=== PATIENT | female | born 1975 | race African-American/Black ===

== ENCOUNTER 2018-10-25 01:12 | Emergency (ER) | payer OTHER, MEDICAID ==
--- NOTE | 2018-10-25 02:36 | EDPHY ---
H & P Stated Complaint: RLS for 3 days-takes percocet fro it as well as xanax Time Seen by Provider: 10/25/18 02:36 HPI/ROS: HPI CHIEF COMPLAINT: "I am out of my medications for restless leg syndrome" "I take Xanax and Percocet" HISTORY OF PRESENT ILLNESS: Patient 43-year-old female, she just relocated from [facility] to [facility], she presents emergency room stating that she suffers from restless legs syndrome and typically takes Xanax and Percocet for this. States she ran out of these medications 2-3 days ago. She presents emergency room around 2:00 a.m. In the morning stating her legs very breathless and she cannot get to sleep for the past 2 days. She is requesting refill of her Percocet and Xanax. She is followed by [facility]. I explained to her that I cannot refill her Xanax and Percocet this will need to follow up with her primary care doctor for this. I am willing to give her Tylenol and Motrin here which she tells me does not work, I also is willing to give her 1 mg Ativan. She reports to me she has never taking gabapentin or Requip before. "only percocet and xanxax work" Past Medical History: Restless leg syndrome Past Surgical History: Denies recent surgery Social History: Relocated from [facility] Family History: Noncontributory ROS REVIEW OF SYSTEMS: 10 Systems were reviewed and negative with the exception of the elements mentioned in the history of present illness. Exam Constitutional triage nursing summary reviewed, vital signs reviewed, awake/ alert. Eyes normal conjunctivae and sclera, EOMI, PERRLA. HENT normal inspection, atraumatic, moist mucus membranes, no epistaxis, neck supple/ no meningismus, no raccoon eyes. Respiratory clear to auscultation bilaterally, normal breath sounds, no respiratory distress, no wheezing. Cardiovascular rate normal, regular rhythm, no murmur, no edema, distal pulses normal. Gastrointestinal soft, non-tender, no rebound, no guarding, normal bowel sounds, no distension, no pulsatile mass. Genitourinary no CVA tenderness. Musculoskeletal bilateral lower extremities warm, no abnormal swelling, good distal pulse, good cap refill, moves them appropriately, ambulated well to the bathroom without difficulty no midline vertebral tenderness, full range of motion, no calf swelling, no tenderness of extremities, no meningismus, good pulses, neurovascularly intact. Skin pink, warm, & dry, no rash, skin atraumatic. Neurologic awake, alert and oriented x 3, AAOx3, moves all 4 extremities equally, motor intact, sensory intact, CN II-XII intact, normal cerebellar, normal vision, normal speech. Psychiatric normal mood/affect. Heme/Lymph/Immune no lymphadenopathy. Differential Diagnosis: Includes but is not limited to in a particular order acute anxiety, restless leg syndrome Medical Decision Making: Plan for this patient 1000 mg of Tylenol, 800 mg Motrin, 1 mg Ativan and re-evaluate. Re-evaluation: Notified by nursing staff at 3:13 a.m. The patient left the emergency room without any discharge instructions discharge paperwork or being told that she is ready for discharge. She did receive 1 mg Ativan the plan was to observe her here in the emergency room however she eloped from the ER. Source: Patient - Personal History LMP (Females 10-55): 1-7 Days Ago Current Tetanus Diphtheria and Acellular Pertussis (TDAP): Yes - Medical/Surgical History Hx Asthma: No Hx Chronic Respiratory Disease: No Hx Diabetes: No Hx Cardiac Disease: No Hx Renal Disease: No Hx Cirrhosis: No Hx Alcoholism: No Hx HIV/AIDS: No Hx Splenectomy or Spleen Trauma: No Other PMH: RLS - Social History Smoking Status: Never smoked Constitutional: Initial Vital Signs Temperature (C) 36.5 C 10/25/18 01:19 Heart Rate 90 10/25/18 01:19 Respiratory Rate 16 10/25/18 01:19 Blood Pressure 184/121 H 10/25/18 01:19 O2 Sat (%) 100 10/25/18 01:19 O2 Delivery Mode Room Air Allergies/Adverse Reactions: No Known Allergies Allergy (Unverified 10/25/18 01:18) Home Medications: Medication Instructions Recorded Percocet 5/325 (*) 10/25/18 Xanax 10/25/18 Medical Decision Making - Data Points Medications Given: Discontinued Medications Acetaminophen (Tylenol) 1,000 mg PO EDNOW ONE Stop: 10/25/18 02:43 Last Admin: 10/25/18 02:46 Dose: 1,000 mg Ibuprofen (Motrin) 800 mg PO EDNOW ONE Stop: 10/25/18 02:43 Last Admin: 10/25/18 02:46 Dose: 800 mg Lorazepam (Ativan) 1 mg PO ONCE ONE Stop: 10/25/18 02:43 Last Admin: 10/25/18 02:46 Dose: 1 mg Departure - Departure Disposition: Home, Routine, Self-Care Clinical Impression: Restless leg syndrome Condition: Good Instructions: Restless Legs Syndrome (ED) Additional Instructions: 1. Follow up with your primary care doctor Referrals: NONE *PRIMARY CARE P,. [Primary Care Provider] - As per Instructions [facility],. [Clinic] - As per Instructions
[2018-10-25] MEDS ORDERED: IBUPROFEN 800 MG TAB PO ONE (02:42)
[2018-10-25] MEDS ORDERED: ACETAMINOPHEN 500 MG TAB PO ONE (02:42)
[2018-10-25] MEDS ORDERED: LORazepam 1 MG TAB PO ONE (02:42)
[2018-10-25 02:49] VITALS: BP 154/101
== END 2018-10-25 03:15 | disposition home or self-care (01) ==
DX: G25.81 Restless legs syndrome (principal); Z79.899 Other long term (current) drug therapy

== ENCOUNTER 2018-10-27 23:11 | Emergency (ER) | payer OTHER, MEDICAID ==
[2018-10-28] MEDS ORDERED: KETOROLAC 30 MG/1 ML SDV IM ONE (00:12)
[2018-10-28] MEDS ORDERED: LIDOCAINE 4%/MENTHOL 1% PATCH TD ONE (00:12)
[2018-10-28] MEDS ORDERED: OXYCODONE/APAP 5/325 TAB PO ONE (00:12)
--- NOTE | 2018-10-28 00:18 | EDPHY ---
General Time Seen by Provider: 10/28/18 00:13 Narrative: CLINICAL IMPRESSION: Lumbar back pain with radiculopathy ASSESSMENT/PLAN: Patient is a 43-year-old female with a significant medical history of chronic lumbar back pain secondary to remote pelvic fracture and restless legs syndrome who presents with a complaint of low back pain with radiation down her left leg. Patient is afebrile, she is tearful and uncomfortable appearing however not toxic-appearing. HSNE intact with no significant red flags. Positive straight leg raise on the left side. In reviewing patient's records she was seen in urgent care on 10/24/2018 and prescribed #20 Ativan, seen again in the emergency department 10/25/2018 when she eloped prior to formal discharge instructions. History of physical examination today is most consistent with acute on chronic lumbar back pain with radiculopathy. She had no saddle paresthesias, lower extremity numbness, tingling, major motor weakness, urinary retention or bowel/ bladder incontinence. No indication for emergent MRI. There were no clinical findings to suggest vertebral osteomyelitis, acute fracture, cauda equina syndrome, epidural abscess/hematoma, epidural compression syndrome, herpes zoster, or additional emergent process. Patient was given single dose of Toradol , Percocet and lidoderm patch was placed while in the ED with mild improvement of her pain. She is well established with [facility] and will call to schedule a follow-up appointment on Monday. She understands that the emergency department will not refill her chronic medications. On repeat examination and prior to discharge the patient is well-appearing, she is able to ambulate independently and without difficulty, her neurological exam was grossly normal with no focal deficit. Strict return precautions discussed- she will return for increased or unmanageable pain, new injury, new midline back pain, numbness , tingling, weakness of legs, loss of bowel or bladder control, saddle paresthesia, urinary retention, loss of bowel or bladder control, difficulty walking or for any other new, worsening or worrisome symptoms. Patient verbalizes understanding and she is in agreement with plan. DIFFERENTIAL DX: Back pain including but not limited to muscular pain, herniated disc, spine fracture, intra-abdominal causes and urinary tract infection. ED COURSE: 0026: PDMP reviewed, patient given a prescription for 20 Ativan on 10/24. Regular prescriptions for Adderall have been given. Single prescription for 12 oxycodone last April. No evidence of narcotic use/overuse. 0100: On repeat examination prior to discharge the patient is well-appearing. She is much more comfortable, her mobility has improved. She is able to ambulate independently and without difficulty. Her neurological exam is grossly normal with no focal deficit. CHIEF COMPLAINT: Lumbar back pain, left buttock pain with radiation to her left leg HPI: Patient is a 43-year-old female with a significant medical history of chronic lumbar back pain secondary to remote pelvic fracture restless legs syndrome who presents with an acute exacerbation of pain with radiation down her left leg. Patient reports yesterday she had a sudden onset, atraumatic worsening of her underlying lumbar back pain. She reports the pain is most intense in her left buttock and radiates down the back of her leg to her foot. She denies any recent trauma or injury. She has experienced pain like this before. Patient endorses a remote pelvic fracture 3 years prior, has struggled with pain since then. Patient denies saddle paresthesias, lower extremity numbness, tingling, major motor weakness, urinary retention or bowel/bladder incontinence. She denies any recent fever, chest pain, shortness of breath or abdominal pain. She denies any pelvic pain, vaginal pain or vaginal bleeding. Patient does have issues with constipation, has been several days since she has had a bowel movement which is not uncommon for her. She denies any history of IV drug use, no recent spinal procedures. Patient was seen and evaluated in the emergency department 2 days prior for complaints of restless legs syndrome and requesting medication refills. Patient was given Ativan and noted to elope from the emergency department prior to discharge instructions. Patient lives at home with her 2 daughters who are 10 and 12, she is well established at [facility] per her report. PMH: Chronic back pain, restless leg syndrome Family History: Not contributory Social History: Denies illicit drug use or history of IV drug use, denies cigarette smoking REVIEW OF SYSTEMS: All other systems negative Constitutional: No fever, no chills, appetite change. Eyes: No discharge, vision change ENT: No sore throat, congestion, ear pain. Cardiovascular: No chest pain, no palpitations. Respiratory: No cough, no shortness of breath. Gastrointestinal: No abdominal pain, no vomiting, diarrhea. Genitourinary: No hematuria, dysuria, flank pain, pelvic pain. Musculoskeletal: Back pain, left buttock pain with radiation into the left leg. Skin: No rashes, color change. Neurological: No headache, dizziness, weakness. PHYSICAL EXAM: General Appearance: Patient is well-developed, she is tearful and uncomfortable appearing however not toxic-appearing. HENT: Normocephalic, atraumatic. Bilateral external ears are normal. Bilateral tympanic membranes are normal with pearly joaquin reflex. Nares are clear, mucosa is pink. Oropharynx is clear, uvula is midline. There is no tonsillar enlargement or exudate. The dentition is normal. Eyes: PERRLA, EOMI intact. Conjunctiva pink, no pallor or injection. Neck: Supple, nontender, no lymphadenopathy, no midline pain, FROM, no meningismus. Back: No step-off, palpable bony abnormality, edema, erythema or ecchymosis of the cervical, thoracic or lumbar spines. Patient with very mild tenderness to palpation in the midline lumbar spine, she is very tender in the left SI joint and buttock. Limited ROM of lumbar spine due to pain. 5/5 and equal strength of the UEs and LEs bilaterally including shoulder shrug. Pulses: 2+ and equal radial, DP and PT pulses bilaterally. Sensation intact and symmetric to light touch from face, UEs and LEs bilaterally. Straight leg raise positive on the left side. NON-traumatic Back Pain Pathway Low/medium concern for Acute Spinal Emergency (ASE) High Sensitivity Neuro Exam (HSNE) Lumbar pain L1: inner thigh sensation- no deficit L2: ADduct thigh (cross legs)- no deficit L3: Extend knee- no deficit L4: Ankle dorsiflexion- no deficit L5: Great toe extension- no deficit S1: Flex knee- no deficit S3-4: bladder/bowel function - no dysfunction HSNE no deficit --> check red flags Red flags: MINOR (1 pt each) Alcohol abuse- 0 DM- 0 Renal failure- 0 Night pain- 1 3rd visit in <= 20 days - no MAJOR (3 pts each) IVDA- 0 Fever without focus- 0 Recent/current systemic infection- 0 Immunosuppression (physician discretion)- 0 Recent spinal fracture/spinal procedure (ESR is not a good screen for spinal epidural hematoma)- 0 New bladder/bowel incontinence or retention - 0 Total Red Flag score - 1 Total Red Flag score <= 3 AND neuro exam is at baseline ---> no MRI is recommended Respiratory: There are no retractions, lungs are clear to auscultation. Cardiac: Regular rate and rhythm, no murmurs or gallops. Gastrointestinal: Abdomen is soft, nontender, bowel sounds normal, no masses/ hernia, no rigidity, guarding or focal peritoneal findings. Neurological: Alert and oriented x 3, CN 2-12 grossly intact, normal gait no ataxia, DTR's intact, normal sensation and strength Skin: Warm, dry, no rashes, no nodules on palpation. Musculoskeletal: Extremities are symmetrical, full range of motion, no tenderness, deformity, swelling, or erythema. Psychiatric: Patient is oriented X 3, there is no agitation. MEDICAL DECISION MAKING: Patient was seen independently. Secondary supervising physician at time of evaluation was Dr. Leblanc. Diagnosis: Lumbar back pain with radiculopathy. New, requires workup Summary: See Assessment and Plan for summary of ED visit Clinical lab tests: Not applicable. Independent visualization of images, tracing, or specimens: Not applicable. Decision to obtain medical records or history from someone other than the patient: No Review / Summarize previous medical records: Yes Discussed patient with another provider: Yes, Dr. Leblanc Patient Progress: Stable, dispo pending. - History Smoking Status: Never smoked - Objective Vital Signs: Initial Vital Signs Temperature (C) 37.0 C 10/27/18 23:13 Heart Rate 95 10/27/18 23:13 Respiratory Rate 16 10/27/18 23:13 Blood Pressure 154/103 H 10/27/18 23:13 O2 Sat (%) 100 10/27/18 23:13 O2 Delivery Mode Room Air Allergies/Adverse Reactions: No Known Allergies Allergy (Verified 10/27/18 23:15) Home Medications: Medication Instructions Recorded Percocet 5/325 (*) 10/25/18 Xanax 10/25/18 Medications Given: Discontinued Medications Ketorolac Tromethamine (Toradol) 30 mg IM EDNOW ONE Stop: 10/28/18 00:13 Last Admin: 10/28/18 00:20 Dose: 30 mg Miscellaneous Medication (Icy Hot Lidocaine/Menthol 4%/1% Patch) 1 patch TD EDNOW ONE Stop: 10/28/18 00:13 Last Admin: 10/28/18 00:18 Dose: 1 patch Oxycodone/Acetaminophen (Percocet 5/325) 2 tab PO EDNOW ONE Stop: 10/28/18 00:13 Last Admin: 10/28/18 00:17 Dose: 2 tab Departure - Departure Disposition: Home, Routine, Self-Care Clinical Impression: Lumbar back pain with radiculopathy affecting left lower extremity Condition: Good Instructions: Lumbar Radiculopathy (ED) Additional Instructions: DISCHARGE INSTRUCTIONS FROM YOUR DOCTOR Thank you for visiting our emergency department today. Please keep in mind that discharge from the emergency department does not mean that there is nothing wrong - it simply means that we have not identified an emergency condition that requires further evaluation or treatment in the hospital. You should always plan to follow up with primary care for re-evaluation of your condition in the next 2-3 days. Please call [facility] on Monday to schedule a follow-up appointment. It is imperative that you follow up with [facility] as we cannot refill your long-term medications. Most back pain improves quickly with rest and anti-inflammatory medicines. The majority of back pain will improve regardless of treatment within 4-6 weeks. Regardless, I recommend you follow up with primary care for recheck as soon as possible. Additional evaluation as an outpatient may be needed, and further therapeutic modalities such as chiropractic or PT may be helpful. Rest. Avoid lifting greater than 10-15 pounds. Avoid twisting or prolonged sitting. Movement and gentle walking is good for your back. Try to walk for 15-10 minutes on an even surface 3 or 4 times a day as tolerated and increase gentle exercise as your back improves. Apply ice to your low back during acute pain phase, later a heating pad set to a low setting or hot tub may be helpful to help relax muscles. Salonpas topical pain patch if you feel this his helped you. Follow the instructions on the packaging. Ibuprofen 400 mg every 6-8 hours with food. Stop for stomach upset. Do not exceed 2400 mg in 24 hours. Avoid these medications for the next 8 hours as you received Toradol today in the ED. Schedule a follow-up appointment with your primary care physician in the next 2- 3 days for re-evaluation. You may require further treatment, physical therapy and/or further future testing. Return for increased or unmanageable pain, new injury, new midline back pain, numbness, tingling, weakness of your legs, loss of bowel or bladder control, inability to urinate, burning or pain with urination, blood in the urine, fever , chills, abdominal pain, vomiting, difficulty walking, dizziness, fainting, chest pain, shortness of breath, neck pain, neck stiffness, other site of back pain, calf pain, leg redness or swelling, or for any other new, worsening or worrisome symptoms. People present with illnesses and injuries in different ways, and it is always possible that we have missed something. You may always return for re-evaluation if symptoms worsen or if they are not improving or if you develop new/different symptoms. Again, thank you for choosing our emergency department. We hope that you feel better. Referrals: [facility],. [Clinic] - 1-2 days without fail
[2018-10-28 00:24] VITALS: BP 160/106
[2018-10-28] MEDS ORDERED: PATCH REMOVAL 1 EA PATCH TD SCH (21:00)
== END 2018-10-28 01:02 | disposition home or self-care (01) ==
DX: M54.16 Radiculopathy, lumbar region (principal)
CPT/HCPCS: 96372; 99284; J1885

== ENCOUNTER 2018-10-30 07:31 | Emergency (ER) | payer OTHER, MEDICAID ==
--- NOTE | 2018-10-30 08:03 | EDPHY ---
H & P Time Seen by Provider: 10/30/18 07:48 HPI/ROS: CHIEF COMPLAINT: Bilateral leg pain, low back pain HISTORY OF PRESENT ILLNESS: Patient is a 43-year-old female who presents emergency department ongoing lumbar back pain. Patient has a history of chronic lumbar back pain due to her remote pelvic fracture. She also has a history of restless leg syndrome. She was seen at an outside facility on 2017 given Ativan. She was also seen in the emergency department on 10/25/2018. Patient was seen at [facility] on 10/28/2018. At that time she was given a single dose of Percocet and told to take ibuprofen. She is given follow-up with [facility]. The patient states since her discharge she has had increasing low back pain. She has intermittent shooting pain down her legs bilaterally. She describes this as a fairly diffuse pain. She has had no incontinence of urine or stool. No fevers or chills. No weakness or numbness. REVIEW OF SYSTEMS: 10 systems were reveiwed and are negative with the exception of the elements mentioned in the history of present illness. Past Medical/Surgical History: Includes chronic low back pain, restless leg syndrome Family history: Noncontributory Social history: The patient denies IV drug use Smoking Status: Never smoked Physical Exam: Vitals noted GENERAL: Mild acute distress, alert. HEENT: Eyes normal to inspection, normal pharynx, no signs of dehydration. NECK: Normal, supple. RESPIRATORY: Clear to auscultation bilaterally, no rales, rhonchi or wheezing. CVS: Regular rate and rhythm, no rubs, murmurs, or gallops. ABDOMEN: Soft, nontender, nondistended, no organomegaly. BACK: Normal to inspection, no CVA tenderness. No spinal tenderness to palpation. No discoloration. Negative leg raise bilaterally. SKIN: Normal color, no rash, warm, dry. No pallor. EXTREMITIES: No pedal edema, no calf tenderness, no Homans sign or cords, no joint swelling. NEURO/PSYCH: Alert and oriented, normal mood and affect, normal motor sensory exam. No obvious cranial nerve deficit. Constitutional: Initial Vital Signs Temperature (C) 36.6 C 10/30/18 07:33 Heart Rate 97 10/30/18 07:33 Respiratory Rate 14 10/30/18 07:33 Blood Pressure 159/111 H 10/30/18 07:33 O2 Sat (%) 100 10/30/18 07:33 O2 Delivery Mode Room Air Allergies/Adverse Reactions: No Known Allergies Allergy (Verified 10/27/18 23:15) Home Medications: Medication Instructions Recorded Percocet 5/325 (*) 10/25/18 Xanax 10/25/18 oxyCODONE/APAP 5/325 [Percocet 1 - 2 tab PO Q4PRN PRN #7 tab 10/30/18 5/325 (*)] predniSONE 20 mg PO DAILY 4 Days tab 10/30/18 Medical Decision Making ED Course/Re-evaluation: In the emergency department I reviewed the previous record. The patient's nontraumatic back pain pathway score has changed from 1-2. This is still less than 3. She has a normal neuro exam. I do not feel she needs acute MRI or CT imaging. I discussed this with the patient. Patient will be given a course of steroids. She was also given 7 tablets of Percocet. She is given follow-up with both the on-call primary care physician and Neurosurgery. She was given warnings prior to leaving. She will return with worsening symptoms. Differential Diagnosis: My differential includes but is not limited to disc herniation, musculoskeletal strain, osteomyelitis, epidural abscess, zoster, fracture, neuro surgical emergency Departure - Departure Disposition: Home, Routine, Self-Care Clinical Impression: Low back pain Qualifiers: Chronicity: acute Back pain laterality: bilateral Sciatica presence: with sciatica Sciatica laterality: bilateral sciatica Qualified Code(s): M54.42 - Lumbago with sciatica, left side; M54.41 - Lumbago with sciatica, right side; M54.41 - Lumbago with sciatica, right side Condition: Good Instructions: Acute Low Back Pain (ED) Additional Instructions: Take your entire course of steroids. Return with increasing pain, weakness, numbness, fever or any other concerns Referrals: Stephanie Snow MD [Medical Doctor] - 5-7 days, call for appt. Juan M Castle MD [Medical Doctor] - 5-7 days, call for appt. Prescriptions: oxyCODONE/APAP 5/325 [Percocet 5/325 (*)] 1 - 2 tab PO Q4PRN PRN #7 tab PRN Reason: For Moderate To Severe Pain predniSONE 20 mg PO DAILY 4 Days tab
[2018-10-30] MEDS ORDERED: predniSONE 20 MG TAB PO ONE (08:05)
[2018-10-30] MEDS ORDERED: predniSONE 20 MG TAB ONE (08:08)
[2018-10-30 08:14] VITALS: BP 137/100
--- NOTE | 2018-10-30 17:47 | ASDISCHSUM ---
Discharge Information Plan Status:Home with No Needs Medically Cleared to Leave: Discharge Date:10/30/2018 08:14 AM CM D/C Disposition:Home, Routine, Self-Care ADT D/C Disposition:Home, Routine, Self-Care Projected Discharge Date:10/30/2018 08:14 AM Transportation at D/C:None or Unknown Discharge Delay Reason: Follow-Up Date:10/30/2018 08:14 AM Discharge Slot: Final Diagnosis: Placement Information Patient Contact Information Contact Name:CARLOS Relationship: Address: Home Phone: Work Phone: City: Alternate Phone: State/[place] III Code: Email: Financial Information Financial Class:Medicaid Primary Plan Desc:[employer] Primary Plan Number:[id number] Secondary Plan Desc: Secondary Plan Number: Assessment Information Intervention Information Intervention Type:Health Clinic Date of Service:10/30/2018 05:40 PM Patient Type:Emergency Room Staff Member:CELESTINO Rodriguez, Holli Hours:0.25 Discipline:Minute Clerk For Basic [employer] Severity: Comment:CM was unable to meet with pt while in the ED before pt was discharged. CM called [facility]; pt is followed by Angela Nicole. CM requested they reach out to the pt re: followup; they said they lynch d been trying to call the pt because the y were aware of recent ED visits but the phone # they had was out of services. provided most recent # in our records ([phone]). GAURAV also noted to th at there is concern for pt coming to the ED for narcotic and benzodiazepine meds. (See ED RN notes and ED MD Repor ts from 10/25-10/30/18). aware and will hopefully get in touch with the pt. If the pt returns to the ED, please attem pt to schedule the pt a followup appt for her or see if has a same-day appt available. Pt's last visit at was 04/2018 and had only been seen there a time or so before that visit.
== END 2018-10-30 08:14 | disposition home or self-care (01) ==
DX: M54.42 Lumbago with sciatica, left side (principal); M54.41 Lumbago with sciatica, right side
CPT/HCPCS: 99284; J7512

== ENCOUNTER 2018-11-26 00:04 | Emergency (ER) | payer OTHER, MEDICAID ==
[2018-11-26 00:09] VITALS: BP 149/97
--- NOTE | 2018-11-26 00:46 | EDPHY ---
H & P Stated Complaint: resteless legs, bilateral pain. Can't sleep. no new injury Time Seen by Provider: 11/26/18 00:11 HPI/ROS: Chief Complaint: Restless legs HPI: 43-year-old woman with a history of restless leg syndrome is presenting complaining of pain and discomfort in her legs and back consistent with prior restless leg syndrome. Patient has been seen here in this emergency department several times for the same. Patient has recently moved here from [place] a couple months ago. Patient states that the only medicines at work for her Percocet and Xanax. Patient has been here requesting these medications multiple times in the past. Patient states she has not had any pain for the last 2 weeks. She states she did take 600 mg of ibuprofen earlier tonight with no relief. Patient states she has not seen a doctor since her last visit to this emergency department. Denies any numbness or weakness. She is ambulating without difficulty. No recent falls or injuries. No fevers or chills. Pain is currently 7/10. I reviewed the prescription drug monitoring program. Patient received a prescription for 21, 50 mg tramadol tablets on the 16 of this month. When I asked the patient she take the tramadol she says she does not take it because it does not work. ROS: 10 systems were reviewed and were negative except those elements noted in the HPI. PMH: Restless leg syndrome, chronic back pain Social History: No smoking, no alcohol, no recreational drug use Family History: non-contributory Physical Exam: Gen: Awake, Alert, No Distress HEENT: Nose: no rhinorrhea Eyes: PERRLA, EOMI Mouth: Moist mucosa Neck: Supple, no JVD Chest: nontender, lungs clear to auscultation Heart: S1, S2 normal, no murmur Abd: Soft, non-tender, no guarding Back: no CVA tenderness, no midline tenderness Ext: no edema, non-tender Skin: no rash Neuro: CN II-XII intact, Sensation grossly intact, Strength 5/5 in bilateral upper and lower extremities, 2+ deep tendon reflexes. Normal plantar flexion and dorsiflexion. Normal straight right leg raise. - Personal History Current Tetanus/Diphtheria Vaccine: Yes Current Tetanus Diphtheria and Acellular Pertussis (TDAP): Yes - Medical/Surgical History Hx Asthma: No Hx Chronic Respiratory Disease: No Hx Diabetes: No Hx Cardiac Disease: No Hx Renal Disease: No Hx Cirrhosis: No Hx Alcoholism: No Hx HIV/AIDS: No Hx Splenectomy or Spleen Trauma: No Other PMH: RLS - Social History Smoking Status: Never smoked Constitutional: Initial Vital Signs Temperature (C) 37.0 C 11/26/18 00:07 Heart Rate 103 H 11/26/18 00:07 Respiratory Rate 20 11/26/18 00:07 Blood Pressure 149/97 H 11/26/18 00:07 O2 Sat (%) 99 11/26/18 00:07 O2 Delivery Mode Room Air Allergies/Adverse Reactions: No Known Allergies Allergy (Verified 11/26/18 00:07) Home Medications: Medication Instructions Recorded Percocet 5/325 (*) 10/25/18 Xanax 10/25/18 oxyCODONE/APAP 5/325 [Percocet 1 - 2 tab PO Q4PRN PRN #7 tab 10/30/18 5/325 (*)] predniSONE 20 mg PO DAILY 4 Days tab 10/30/18 Medical Decision Making ED Course/Re-evaluation: 43-year-old woman presenting requesting Percocet for her restless leg syndrome. Patient initially denied having any other medications at home. I have found in the prescription drug monitoring program that she was given a prescription for 21 tramadol on the 16th of this month. Patient was initially asked about any medications during my initial interview. Patient was not forthcoming about having these medications at home. I have offered her acetaminophen in addition to her ibuprofen. Patient does not want this. Patient states that up doc and give her any Percocet she will leave. The patient then proceeded to get up walk out of the emergency department without any paperwork. Departure - Departure Disposition: Home, Routine, Self-Care Clinical Impression: Restless leg syndrome, Drug-seeking behavior Condition: Fair Referrals: NONE *PRIMARY CARE P,. [Primary Care Provider] - As per Instructions
== END 2018-11-26 00:30 | disposition home or self-care (01) ==
DX: G25.81 Restless legs syndrome (principal); Z76.5 Malingerer [conscious simulation]